=== PATIENT | male | born 1940 | race Caucasian/White ===

== ENCOUNTER 2016-08-29 07:53 | Emergency (ER) | payer MEDICARE, BC ==
[2016-08-29 07:23] LABS: BASOPHILS 0.6 %; BASOPHILS ABSOLUTE 0.03 10/3/uL (0.0-0.16); EOSINOPHILS 3.3 %; EOSINOPHILS ABSOLUTE 0.17 10/3/uL (0.0-0.53); ER CBC TAT 0 Hrs 05 Mins; HEMATOCRIT 44.1 % (40.0-51.0); HEMOGLOBIN 14.4 g/dL (13.6-17.8); IMMATURE GRANULOCYTES 0.6 %; IMMATURE GRANULOCYTES ABSOLUTE 0.03 10/3/uL (0.0-0.11); LYMPHOCYTES 28.6 %; LYMPHOCYTES ABSOLUTE 1.49 10/3/uL (0.67-4.30); MEAN CORPUS HGB CONC 32.7 g/dL (32.0-36.0); MEAN CORPUSCULAR HEMOGLOB 28.4 pg (26.0-34.0); MEAN PLATELET VOLUME 9.5 fL (9.2-13.0); MONOCYTES 10.9 %; MONOCYTES ABSOLUTE 0.57 10/3/uL (0.21-1.20); NEUTROPHILS ABSOLUTE 2.92 10/3/uL (2.02-8.40); PLATELET COUNT 92 10/3/uL (150-400); RBC DISTRIBUTION WIDTH 14.5 % (12.0-16.0); RED CELL COUNT 5.07 10/6/uL (4.7-6.1); WHITE BLOOD CELLS 5.2 10/3/uL (4.5-10.5)
[2016-08-29 07:24] LABS: MANUAL DIFF NO %
[2016-08-29 07:42] LABS: PROTIME (NOT ORD) 13.3 SEC (12.0-14.5)
[2016-08-29 07:43] LABS: BUN (BLOOD UREA NITROGEN) 16 MG/DL (6-23); CALCIUM, SERUM 8.8 MG/DL (8.5-10.4); CHEST PAIN PROFILE TAT 0 Hrs 25 Mins; CHLORIDE, SERUM 103 MMOL/L (96-112); CO2 (CARBON DIOXIDE) 39 MMOL/L (24-34); CREATININE 1.05 MG/DL (0.70-1.30); GFR AFRICAN AMERICAN 79 ML/MIN (>=60); GFR NON AFRICAN AMERICAN 68 ML/MIN (>=60); GLUCOSE, SERUM 90 MG/DL (60-99); POTASSIUM, SERUM 4.1 MMOL/L (3.5-5.3); SODIUM, SERUM 144 MMOL/L (135-148); TROPONIN I <0.02 NG/ML (<0.05)
[2016-08-29 07:47] LABS: PARTIAL THROMBO TIME 26.6 SEC (22.5-37.2)
[~2016-08-29 07:53] MED LIST: ALBUTEROL5 INH; FISH-EPA1000 MG PO; FLONASE NAS; GLUCOPHAGE1000 MG PO; GLUCPH PO; KAPIDEX30 MG PO; LEVAQUIN750 MG PO; MUCINEX1200 MG PO; MUCINEX600 MG PO; NEUR300 PO; NEUR600 PO; NORV5 PO; NOVOLOGMIX SC; PROAIR HFA INH; PROVENTSOL INH; SPIRIVA INH; STERAPDS12; STOMACH PILL PO; SYMBICORT 160/41 INH INH; VENTOLIN HFA INH; X5 PO; ZANTAC 150 PO; ZANTAC150 MG PO; [UNRECOGNIZED DRUG - REMARK] PO
== END 2016-08-29 10:22 | disposition admitted as inpatient to this hospital (09) ==
LOC: ER 07:53
PROVIDERS: Hospitalist
DX: J44.9 Chronic obstructive pulmonary disease, unspecified (principal); F41.9 Anxiety disorder, unspecified; E11.9 Type 2 diabetes mellitus without complications; Z87.891 Personal history of nicotine dependence; Z79.4 Long term (current) use of insulin; Z79.52 Long term (current) use of systemic steroids
CPT/HCPCS: 71010; 71275; 80048; 83735; 84484; 85025; 85610; 85730; 93005; 99285; A9270-GY; Q9967